=== PATIENT | male | born 1955 | race American Indian/Alaskan Native ===

== ENCOUNTER 2017-03-05 11:20 | Inpatient (IN) | payer MEDICARE, OTHER ==
[2017-03-05 11:23] VITALS: BMI 28.3
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
--- NOTE | 2017-03-05 12:01 | CT ---
PROCEDURE: CT HEAD WITHOUT CONTRAST. HISTORY: code stroke COMPARISON: 10/31/2010. TECHNIQUE: Axial computed tomography images were obtained through the head/brain without intravenous contrast. Radiation dose: Total exam DLP = 878.40 mGy-cm. This CT exam was performed using one or more of the following dose reduction techniques: Automated exposure control, adjustment of the mA and/or kV according to patient size, and/or use of iterative reconstruction technique. FINDINGS: HEMORRHAGE: No intracranial hemorrhage. BRAIN: No mass effect or edema. Atrophy, periventricular small vessel disease. Findings in the periventricular internal capsule region on the left consistent with old infarct of findings seen previously which correlates to findings on physical examination. VENTRICLES: Unremarkable. No hydrocephalus. CALVARIUM: Unremarkable. PARANASAL SINUSES: Unremarkable as visualized. No significant inflammatory changes. MASTOID AIR CELLS: Unremarkable as visualized. No inflammatory changes. OTHER FINDINGS: None. IMPRESSION: No acute findings related to/accounting for the clinical presentation. No significant interval change compared to the prior examination(s). Code stroke protocol: Study completed 11:49 Radiologist notified 11:53. Results conveyed verbally at 11:59. Interpretation finalized and available for review 12:01.
[2017-03-05 12:39] LABS: BASO # 0.1 K/uL (0.0-0.2); BASO % 0.7 % (0.0-2.0); EOS # 0.1 K/uL (0.0-0.7); EOS % 0.9 % (0.0-4.0); HEMATOCRIT 40.9 % (35.0-51.0); LYMPH # 0.6 K/uL (1.0-4.3); LYMPH % 5.7 % (20.0-40.0); MEAN CELL VOLUME 83.3 fl (80.0-94.0); MEAN CORPUSCULAR HGB CONC 32.4 g/dL (33.0-37.0); MEAN PLATELET VOLUME 8.4 fl (7.2-11.7); MONO % 10.6 % (0.0-10.0); NEUT # 7.9 K/uL (1.8-7.0); NEUT % 82.1 % (50.0-75.0); PLATELET COUNT 116 K/uL (130-400); RED CELL DISTRIBUTION WIDTH 14.2 % (11.5-14.5); WHITE BLOOD COUNT 9.6 K/uL (4.8-10.8)
[2017-03-05 12:57] LABS: ALB/GLOB RATIO 1.3 (1.0-2.1); ALKALINE PHOSPHATASE 78 U/L (38-126); ALT/SGPT 27 U/L (21-72); AST/SGOT 20 U/L (17-59); BLOOD UREA NITROGEN 19 mg/dl (9-20); CALCIUM 9.6 mg/dL (8.4-10.2); CARBON DIOXIDE 19 mmol/L (22-30); CHLORIDE 113 mmol/L (98-107); CHOLESTEROL 179 mg/dL (0-199); GFR AFRICAN-AMERICAN > 60; GLUCOSE,RANDOM 106 mg/dL (75-110); POTASSIUM 4.6 MMOL/L (3.6-5.0); SODIUM 145 mmol/l (132-148); TOTAL PROTEIN 6.6 G/DL (6.3-8.2)
--- NOTE | 2017-03-05 12:58 | RAD ---
HISTORY: code stroke COMPARISON: Chest x-ray performed 10/31/10 TECHNIQUE: Chest, one view. FINDINGS: LUNGS: Central vascular congestion. Mild pulmonary venous congestion. No focal consolidation. Please note that chest x-ray has limited sensitivity for the detection of pulmonary masses. PLEURA: No significant pleural effusion identified. No definite pneumothorax . CARDIOVASCULAR: Median sternotomy wires with evidence of CABG. Cardiomegaly. OSSEOUS STRUCTURES: No acute osseous abnormality identified. VISUALIZED UPPER ABDOMEN: Unremarkable. OTHER FINDINGS: None. IMPRESSION: Central vascular congestion. Mild pulmonary venous congestion. Cardiomegaly.
[2017-03-05 13:10] LABS: PARTIAL THROMBOPLASTIN TIME 28.2 SECONDS (23.3-32.5)
[2017-03-05 14:35] LABS: BASOPHIL 1 % (0-2); NEUTROPHIL 82 % (42-75); REACTIVE LYMPHOCYTES 1 % (0-0); TOTAL CELLS COUNTED 100
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
[2017-03-05 20:08] LABS: RBC URINE 5 /hpf (0-3); URINE BILIRUBIN NEGATIVE (NEGATIVE); URINE BLOOD NEGATIVE (NEGATIVE); URINE COLOR YELLOW (YELLOW); URINE GLUCOSE (UA) NEG (Normal); URINE KETONE NEGATIVE (NEGATIVE); URINE LEUKOCYTE ESTERASE NEG Leu/uL (Negative); URINE PROTEIN >=500 mg/dL (NEGATIVE); URINE UROBILINOGEN 0.2-1.0 mg/dL (0.2-1.0); WBC URINE < 1 /hpf (0-5)
[2017-03-05] MEDS ORDERED: Apap-Butalbital-Caffeine 325-50-40mg Tab ONE ×2 (21:02→21:04)
[2017-03-05 21:09] LABS: HEMATOCRIT 44.6 % (35.0-51.0); MEAN CELL VOLUME 85.4 fl (80.0-94.0); MEAN CORPUSCULAR HEMOGLOBIN 26.7 pg (27.0-31.0); MEAN CORPUSCULAR HGB CONC 31.3 g/dL (33.0-37.0); PLATELET COUNT 94 K/uL (130-400); RED CELL DISTRIBUTION WIDTH 14.9 % (11.5-14.5); WHITE BLOOD COUNT 9.9 K/uL (4.8-10.8)
[2017-03-05] MEDS: Apap-Butalbital-Caffeine 325-50-40mg Tab PO PRN (21:11)
[2017-03-05 21:17] LABS: ALB/GLOB RATIO 1.2 (1.0-2.1); ALKALINE PHOSPHATASE 85 U/L (38-126); ALT/SGPT 23 U/L (21-72); AST/SGOT 19 U/L (17-59); BILIRUBIN,TOTAL 1.5 mg/dl (0.2-1.3); BLOOD UREA NITROGEN 17 mg/dl (9-20); CALCIUM 9.9 mg/dL (8.4-10.2); CARBON DIOXIDE 18 mmol/L (22-30); CHLORIDE 112 mmol/L (98-107); GFR AFRICAN-AMERICAN > 60; GLUCOSE,RANDOM 76 mg/dL (75-110); POTASSIUM 4.6 MMOL/L (3.6-5.0); SODIUM 143 mmol/l (132-148); TOTAL PROTEIN 6.8 G/DL (6.3-8.2); URIC ACID 8.6 mg/Dl (3.5-8.5)
[2017-03-05 21:47] LABS: THYROID STIMULATING HORMONE 1.52 mIU/ML (0.46-4.68)
[2017-03-05 23:43] LABS: ERYTHROCYTE SEDIMENTATION RATE QNS mm/hr (0-20)
[2017-03-05] MEDS: Pantoprazole 40 mg EC Tab PO SCH (23:51)
--- NOTE | 2017-03-06 05:46 | CARD ---
APPROVED REPORT EKG Measurement Heart [id number] <Conclusion> Sinus bradycardia Minimal voltage criteria for LVH, may be normal variant ST & T wave abnormality, consider lateral ischemia Abnormal ECG
[2017-03-06] MEDS ORDERED: NIFEdipine 60 mg ER Tab PO SCH (09:00)
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
[2017-03-06] MEDS: Magnesium Oxide 400 mg Tab UD PO SCH ×3 (09:47→17:43)
[2017-03-06] MEDS: NIFEdipine 60 mg ER Tab PO SCH (09:48)
[2017-03-06] MEDS: Pantoprazole 40 mg EC Tab PO SCH (09:49)
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
[2017-03-06] MEDS: Apap-Butalbital-Caffeine 325-50-40mg Tab PO PRN (21:29)
--- NOTE | 2017-03-07 00:41 | CP.PCM.PN ---
Subjective - Date & Time of Evaluation Date of Evaluation: 03/06/17 Time of Evaluation: 20:45 - Subjective Subjective: No major changes, the 25 Hydroxy Vit D level is low (26.5). There is no change in his general condition. Objective - Vital Signs/Intake and Output Vital Signs (last 24 hours): Temp Pulse Resp BP Pulse Ox 98 F 20 L 53 H 125/72 98 03/07/17 00:38 03/07/17 00:38 03/07/17 00:38 03/07/17 00:38 03/07/17 00:38 - Medications Medications: Current Medications Acetaminophen (Tylenol 325mg Tab) 650 mg PO Q6 PRN PRN Reason: Pain, Mild (1-3) Last Admin: 03/05/17 23:49 Dose: 650 mg Acetaminophen/Butalbital/Caffeine (Fioricet) 2 tab PO Q4 PRN PRN Reason: Migraine headache Last Admin: 03/06/17 21:29 Dose: 2 tab Aspirin (Ecotrin) 81 mg PO DAILY [facility] Last Admin: 03/06/17 09:46 Dose: 81 mg Atorvastatin Calcium (Lipitor) 10 mg PO HS [facility] Last Admin: 03/06/17 21:31 Dose: 10 mg Calcium Carbonate (Oscal) 500 mg PO BIDWM [facility] Carvedilol (Coreg) 3.125 mg PO Q12H [facility] Last Admin: 03/06/17 17:42 Dose: Not Given Cholecalciferol (Vitamin D) 1,000 iu PO DAILY [facility] Last Admin: 03/06/17 09:49 Dose: 1,000 iu Cinacalcet (Sensipar) 30 mg PO DAILY [facility] Last Admin: 03/06/17 09:49 Dose: 30 mg Enoxaparin Sodium (Lovenox) 40 mg SC DAILY [facility] PRN Reason: Protocol Ergocalciferol (Drisdol 50,000 Intl Units Cap) 1 cap PO Q7D [facility] Furosemide (Lasix) 80 mg PO DAILY [facility] Last Admin: 03/06/17 09:47 Dose: 80 mg Lisinopril (Zestril) 5 mg PO DAILY [facility] Last Admin: 03/06/17 09:49 Dose: 5 mg Magnesium Oxide (Mag-Ox) 400 mg PO TID [facility] Last Admin: 03/06/17 17:43 Dose: 400 mg Mycophenolate Mofetil (Cellcept) 500 mg PO BID [facility] Last Admin: 03/06/17 17:42 Dose: 500 mg Nifedipine (Procardia Xl) 60 mg PO DAILY [facility] Last Admin: 03/06/17 09:48 Dose: 60 mg Pantoprazole Sodium (Protonix Ec Tab) 40 mg PO DAILY [facility] Last Admin: 03/06/17 09:49 Dose: 40 mg Tacrolimus (Prograf Cap) 5 mg PO BID [facility] Last Admin: 03/06/17 17:43 Dose: 5 mg Tamsulosin HCl (Flomax) 0.4 mg PO HS [facility] Last Admin: 03/06/17 21:31 Dose: 0.4 mg - Labs Labs: PT 10.8 SECONDS (9.6-11.2) 03/05/17 12:29 INR 1.04 (0.92-1.08) 03/05/17 12:29 APTT 28.2 SECONDS (23.3-32.5) 03/05/17 12:29 Assessment and Plan (1) Dizziness Status: Acute (2) CVA (cerebral vascular accident) Status: Chronic (3) Right hemiplegia Status: Chronic (4) Weakness on right side of face Status: Acute (5) Seizure disorder as sequela of cerebrovascular accident Status: Acute (6) Radiculopathy Status: Acute (7) Headache Status: Acute
[2017-03-07] MEDS ORDERED: Ergocalciferol 50,000 Intl Units Cap PO SCH ×2 (00:45→10:00)
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
[2017-03-07 06:50] LABS: BASO # 0.1 K/uL (0.0-0.2); BASO % 0.8 % (0.0-2.0); EOS # 0.1 K/uL (0.0-0.7); EOS % 1.5 % (0.0-4.0); HEMATOCRIT 42.9 % (35.0-51.0); LYMPH # 0.6 K/uL (1.0-4.3); LYMPH % 6.5 % (20.0-40.0); MEAN CELL VOLUME 83.6 fl (80.0-94.0); MEAN CORPUSCULAR HEMOGLOBIN 26.9 pg (27.0-31.0); MEAN CORPUSCULAR HGB CONC 32.2 g/dL (33.0-37.0); MEAN PLATELET VOLUME 8.7 fl (7.2-11.7); MONO # 1.3 K/uL (0.0-0.8); MONO % 13.5 % (0.0-10.0); NEUT # 7.3 K/uL (1.8-7.0); NEUT % 77.7 % (50.0-75.0); NRBC % 0.1 % (0.0-0.0); RED CELL DISTRIBUTION WIDTH 14.2 % (11.5-14.5); WHITE BLOOD COUNT 9.4 K/uL (4.8-10.8)
[2017-03-07 07:02] LABS: ALB/GLOB RATIO 1.2 (1.0-2.1); BILIRUBIN,TOTAL 1.2 mg/dl (0.2-1.3); CALCIUM 9.1 mg/dL (8.4-10.2); POTASSIUM 3.8 MMOL/L (3.6-5.0); TOTAL PROTEIN 6.5 G/DL (6.3-8.2)
[2017-03-07] MEDS ORDERED: Enoxaparin 40 mg Syringe SC SCH (09:00)
[2017-03-07] MEDS: Magnesium Oxide 400 mg Tab UD PO SCH ×3 (10:05→16:53)
[2017-03-07] MEDS: Pantoprazole 40 mg EC Tab PO SCH (10:06)
[2017-03-07] MEDS: NIFEdipine 60 mg ER Tab PO SCH (10:06)
--- NOTE | 2017-03-07 10:24 | CP.PCM.PN ---
Addendum entered and electronically signed by Renee Gipson 03/07/17 16:35: Proposed Dispo: TCU 03/08/2017 if medically stable Original Note: <Renee Gipson - Last Filed: 03/07/17 16:35> Subjective - Date & Time of Evaluation Date of Evaluation: 03/07/17 Time of Evaluation: 07:10 - Subjective Subjective: 61M seen and examined at bedside with attending. Pt reports feeling better, improved sensation of swallowing, denies dizziness/ SOB/chest pain and has a good appetite. Objective - Vital Signs/Intake and Output Vital Signs (last 24 hours): Temp Pulse Resp BP Pulse Ox 36.6 C 62 20 169/76 H 98 03/07/17 04:47 03/07/17 10:06 03/07/17 04:47 03/07/17 10:06 03/07/17 04:47 - Medications Medications: Current Medications Acetaminophen (Tylenol 325mg Tab) 650 mg PO Q6 PRN PRN Reason: Pain, Mild (1-3) Last Admin: 03/05/17 23:49 Dose: 650 mg Acetaminophen/Butalbital/Caffeine (Fioricet) 2 tab PO Q4 PRN PRN Reason: Migraine headache Last Admin: 03/06/17 21:29 Dose: 2 tab Aspirin (Ecotrin) 81 mg PO DAILY [facility] Last Admin: 03/07/17 10:04 Dose: 81 mg Atorvastatin Calcium (Lipitor) 10 mg PO HS [facility] Last Admin: 03/06/17 21:31 Dose: 10 mg Calcium Carbonate (Oscal) 500 mg PO BIDWM [facility] Last Admin: 03/07/17 10:02 Dose: 500 mg Carvedilol (Coreg) 3.125 mg PO Q12H [facility] Last Admin: 03/07/17 06:57 Dose: 3.125 mg Cholecalciferol (Vitamin D) 1,000 iu PO DAILY [facility] Last Admin: 03/07/17 10:08 Dose: 1,000 iu Cinacalcet (Sensipar) 30 mg PO DAILY [facility] Last Admin: 03/07/17 10:03 Dose: 30 mg Enoxaparin Sodium (Lovenox) 40 mg SC DAILY [facility] PRN Reason: Protocol Last Admin: 03/07/17 10:08 Dose: 40 mg Ergocalciferol (Drisdol 50,000 Intl Units Cap) 1 cap PO Q7D [facility] Last Admin: 03/07/17 10:11 Dose: 1 cap Lisinopril (Zestril) 5 mg PO DAILY [facility] Last Admin: 03/07/17 10:04 Dose: 5 mg Magnesium Oxide (Mag-Ox) 400 mg PO TID [facility] Last Admin: 03/07/17 10:05 Dose: 400 mg Mycophenolate Mofetil (Cellcept) 500 mg PO BID [facility] Last Admin: 03/07/17 10:06 Dose: 500 mg Nifedipine (Procardia Xl) 60 mg PO DAILY [facility] Last Admin: 03/07/17 10:06 Dose: 60 mg Pantoprazole Sodium (Protonix Ec Tab) 40 mg PO DAILY [facility] Last Admin: 03/07/17 10:06 Dose: 40 mg Tacrolimus (Prograf Cap) 5 mg PO BID [facility] Last Admin: 03/07/17 10:02 Dose: 5 mg Tamsulosin HCl (Flomax) 0.4 mg PO HS [facility] Last Admin: 03/06/17 21:31 Dose: 0.4 mg - Labs Labs: 03/07/17 04:45 03/07/17 04:45 PT 10.8 SECONDS (9.6-11.2) 03/05/17 12:29 INR 1.04 (0.92-1.08) 03/05/17 12:29 APTT 28.2 SECONDS (23.3-32.5) 03/05/17 12:29 - Constitutional Appears: Well, Non-toxic, No Acute Distress - Head Exam Head Exam: ATRAUMATIC, NORMAL INSPECTION - Eye Exam Eye Exam: EOMI, Normal appearance - ENT Exam ENT Exam: Mucous Membranes Moist, Normal Exam - Neck Exam Neck Exam: Full ROM - Respiratory Exam Respiratory Exam: Clear to Ausculation Bilateral, NORMAL BREATHING PATTERN. absent: Rales, Wheezes - Cardiovascular Exam Cardiovascular Exam: REGULAR RHYTHM. absent: JVD - GI/Abdominal Exam GI & Abdominal Exam: Soft, Normal Bowel Sounds. absent: Tenderness - Extremities Exam Extremities Exam: Normal Capillary Refill, Normal Inspection ((Strength L>R: 5/ 5 vs. 4/5)). absent: Pedal Edema - Neurological Exam Neurological Exam: Alert (RIGHT facial droop at baseline intact), Awake, Oriented x3 - Psychiatric Exam Psychiatric exam: Normal Affect, Normal Mood - Skin Skin Exam: Normal Color, Warm Assessment and Plan (1) TIA (transient ischemic attack) Assessment & Plan: Patient is at baseline, and thus far vitD showed insufficiency and CRP mildly elevated. Otherwise, ROBBIE/RA/C3/C4: neg/wnl respectively. MRI- no acute infarct , MRA- wnl, carotid duplex- b/l <50% - Neurology Consult (Dr Smith) appreciated: EEG - c/w Aspirin - PT/OT- rec TCU - Speech Therapy: chopped food and thin liquids okay. Status: Acute (2) DVT prophylaxis Assessment & Plan: Slight elevation in BUN/Cr and Lovenox a new medication, so switched over to Heparin SC, and platelets recovered. - Heparin 5,000U, SC, Q8H Status: Acute (3) Hypertension Assessment & Plan: Controlled, c/w home medications EXCEPT Coreg now with parameters due to significant sinus bradycardia. Status: Chronic (4) History of renal transplant Assessment & Plan: Attempting to get records from Dr L[facility] in [place], [place] where patient had transplant. Continues on appropriate renal transplant medications, and undergoing further work-up by Dr Roper. - Nephrology Consult (Dr Roper) appreciated and all recs followed - Labs in AM - Awaiting records from Nephrology group in [place], [place] Status: Chronic <Austin Gilbert K - Last Filed: 03/09/17 15:58> Objective - Vital Signs/Intake and Output Vital Signs (last 24 hours): Temp Pulse Resp BP Pulse Ox 97.7 F 47 L 20 170/74 H 97 03/09/17 15:44 03/09/17 15:44 03/09/17 15:44 03/09/17 15:44 03/09/17 15:44 - Medications Medications: Current Medications Acetaminophen (Tylenol 325mg Tab) 650 mg PO Q6 PRN PRN Reason: Pain, Mild (1-3) Last Admin: 03/05/17 23:49 Dose: 650 mg Acetaminophen/Butalbital/Caffeine (Fioricet) 2 tab PO Q4 PRN PRN Reason: Migraine headache Last Admin: 03/06/17 21:29 Dose: 2 tab Aspirin (Ecotrin) 81 mg PO DAILY [facility] Last Admin: 03/09/17 09:07 Dose: 81 mg Atorvastatin Calcium (Lipitor) 10 mg PO HS [facility] Last Admin: 03/08/17 23:00 Dose: 10 mg Calcium Carbonate (Oscal) 500 mg PO BIDWM [facility] Last Admin: 03/09/17 09:03 Dose: 500 mg Carvedilol (Coreg) 3.125 mg PO Q12H [facility] Last Admin: 03/09/17 05:10 Dose: 3.125 mg Cholecalciferol (Vitamin D) 1,000 iu PO DAILY [facility] Last Admin: 03/09/17 09:07 Dose: 1,000 iu Cinacalcet (Sensipar) 30 mg PO DAILY [facility] Last Admin: 03/09/17 09:04 Dose: 30 mg Ergocalciferol (Drisdol 50,000 Intl Units Cap) 1 cap PO Q7D [facility] Last Admin: 03/07/17 10:11 Dose: 1 cap Heparin Sodium (Porcine) (Heparin) 5,000 units SC Q8 [facility] PRN Reason: Protocol Last Admin: 03/09/17 09:08 Dose: 5,000 units Sodium Chloride (Sodium Chloride 0.45%) 1,000 mls @ 70 mls/hr IV .[id number] [facility] Stop: 03/09/17 19:01 Last Admin: 03/09/17 00:47 Dose: 70 mls/hr Lisinopril (Zestril) 5 mg PO [facility] Magnesium Oxide (Mag-Ox) 400 mg PO TID [facility] Last Admin: 03/09/17 09:04 Dose: 400 mg Mycophenolate Mofetil (Cellcept) 500 mg PO BID [facility] Last Admin: 03/09/17 09:07 Dose: 500 mg Nifedipine (Procardia Xl) 60 mg PO DAILY [facility] Last Admin: 03/09/17 09:04 Dose: 60 mg Pantoprazole Sodium (Protonix Ec Tab) 40 mg PO DAILY [facility] Last Admin: 03/09/17 09:09 Dose: 40 mg Prednisone (Prednisone Tab) 5 mg PO DAILY [facility] Last Admin: 03/09/17 09:08 Dose: 5 mg Tacrolimus (Prograf Cap) 5 mg PO BID [facility] Last Admin: 03/09/17 09:04 Dose: 5 mg Tamsulosin HCl (Flomax) 0.4 mg PO HS [facility] Last Admin: 03/08/17 23:00 Dose: 0.4 mg - Labs Labs: 03/09/17 10:12 03/09/17 09:08 PT 10.8 SECONDS (9.6-11.2) 03/05/17 12:29 INR 1.04 (0.92-1.08) 03/05/17 12:29 APTT 28.2 SECONDS (23.3-32.5) 03/05/17 12:29 Assessment and Plan - Assessment and Plan (Free Text) Assessment: Patient was personally seen and examined by me in rounds with residents. Available labs and diagnostic data reviewed. Case, Patient's condition and management plan discussed with residents in rounds. Agree with resident's documentation. Plan: As ordered. Austin Gilbert MD
--- NOTE | 2017-03-07 13:25 | US ---
PROCEDURE: Carotid vertebral duplex sonography. HISTORY: Old CVA, R/O a new CVA COMPARISON: 10/31/2010. TECHNIQUE: Grayscale, color Doppler and spectral Doppler assessment of the carotid system bilaterally. This includes common carotid, internal carotid arteries Vertebral artery assessment with respect to direction of flow (antegrade or retrograde) FINDINGS: RIGHT carotid system: Assessment of plaque: Heterogeneous plaque formation. Partially calcified plaque is abundant within the common carotid artery and bulb regions. Similar less pronounced findings in the right ICA. Peak systolic ICA velocity: 90.5 cm/sec End-diastolic velocity: 19.3 cm/sec ICA/CCA ratio: 0.7 Vertebral artery flow: Antegrade LEFT carotid system: Assessment of plaque: Heterogeneous plaque formation. Similar degree, distribution of calcified plaque in the common carotid and bulb regions compared to the opposite side. Peak systolic ICA velocity: 90.8 cm/sec End-diastolic velocity: 15.6 cm/sec ICA/CCA ratio: 0.7 Vertebral artery flow: Antegrade IMPRESSION: Right ICA degree of stenosis: Less than 50% Left ICA degree of stenosis: Less than 50%. No significant interval change compared to the prior examination(s). Reference Internal Carotid Artery (ICA) Peak Systolic Velocity (PSV) for above: 1. Less than 50% stenosis less than 125 cm/s peak systolic velocity 2. 50-69% stenosis 125-230cm/s peak systolic velocity 3. Greater than 70% but less than near occlusion greater than 230 cm/s peak systolic velocity
--- NOTE | 2017-03-07 13:45 | MRI ---
PROCEDURE: MRI BRAIN WITHOUT CONTRAST HISTORY: CVA, old, R/O a new CVA COMPARISON: Noncontrast head CT from 03/05/2017 TECHNIQUE: Multiplanar, multisequence MR images of the brain were obtained without intravenous contrast enhancement. FINDINGS: HEMORRHAGE: None DWI: No evidence of an acute or early subacute infarction. BRAIN PARENCHYMA: There are small old hemorrhagic infarctions in the left marsh radiata and basal ganglia. There are also old lacunar infarctions in bilateral marsh radiata. There are severe chronic microangiopathic changes. There is no mass, mass effect or abnormal extra-axial fluid collection. VENTRICLES: There is mild age-related global parenchymal volume loss and proportionate enlargement of the ventricles and cortical sulci. There are prominent perivascular spaces in bilateral basal ganglia. CRANIUM: There is normal bone marrow signal pattern. ORBITS: Grossly unremarkable. PARANASAL SINUSES/MASTOIDS: There is mild mucosal thickening in the paranasal sinuses. The mastoid air cells are predominantly clear. VASCULAR SYSTEM: There are normal signal voids in the larger intracranial arteries. OTHER FINDINGS: None. IMPRESSION: 1. No acute intracranial abnormality. Specifically, no evidence of acute infarction. 2. Old hemorrhagic infarctions in the left marsh radiata and basal ganglia. 3. Severe chronic microangiopathic changes and mild age-related global parenchymal volume loss.
--- NOTE | 2017-03-07 13:49 | MRI ---
PROCEDURE: Magnetic Resonance Angiography Brain HISTORY: Old CVA, r/o new CVA COMPARISON: None available. TECHNIQUE: 3D time of flight MR angiography of the intracranial arteries was performed. Rotating maximum intensity projection images were generated. FINDINGS: INTERNAL CEREBRAL ARTERIES: Normal in caliber. The skull base, petrous, cavernous and supraclinoid segments are bilaterally widely patient. ANTERIOR CEREBRAL ARTERIES: The left A1 segment is hypoplastic, an anatomic variant.A1 and A2 segments are widely patent. Smaller distal branches unremarkable, as visualized. MIDDLE CEREBRAL ARTERIES: Normal in caliber. M1 and M2 segments are widely patent. Perisylvian branches grossly symmetric. POSTERIOR CIRCULATION: Basilar Artery: Normal in caliber. Distal Vertebral Arteries: Normal in caliber. Posterior Cerebral Arteries: Normal in caliber. Posterior Inferior Cerebellar Arteries: Normal in caliber. ANEURYSM/ VASCULAR MALFORMATIONS: None. OTHER FINDINGS: None. IMPRESSION: Normal noncontrast MRA of the head.
--- NOTE | 2017-03-07 18:54 | CP.PCM.PN ---
Subjective - Date & Time of Evaluation Date of Evaluation: 03/07/17 Time of Evaluation: 18:54 - Subjective Subjective: pt seen and examined, follow up consult is dictated #[id number] Objective - Vital Signs/Intake and Output Vital Signs (last 24 hours): Temp Pulse Resp BP Pulse Ox 97.8 F 51 L 18 131/73 97 03/07/17 16:00 03/07/17 16:54 03/07/17 16:00 03/07/17 16:54 03/07/17 16:43 - Medications Medications: Current Medications Acetaminophen (Tylenol 325mg Tab) 650 mg PO Q6 PRN PRN Reason: Pain, Mild (1-3) Last Admin: 03/05/17 23:49 Dose: 650 mg Acetaminophen/Butalbital/Caffeine (Fioricet) 2 tab PO Q4 PRN PRN Reason: Migraine headache Last Admin: 03/06/17 21:29 Dose: 2 tab Aspirin (Ecotrin) 81 mg PO DAILY [facility] Last Admin: 03/07/17 10:04 Dose: 81 mg Atorvastatin Calcium (Lipitor) 10 mg PO HS [facility] Last Admin: 03/06/17 21:31 Dose: 10 mg Calcium Carbonate (Oscal) 500 mg PO BIDWM [facility] Last Admin: 03/07/17 16:53 Dose: 500 mg Carvedilol (Coreg) 3.125 mg PO Q12H [facility] Last Admin: 03/07/17 16:54 Dose: 3.125 mg Cholecalciferol (Vitamin D) 1,000 iu PO DAILY [facility] Last Admin: 03/07/17 10:08 Dose: 1,000 iu Cinacalcet (Sensipar) 30 mg PO DAILY [facility] Last Admin: 03/07/17 10:03 Dose: 30 mg Ergocalciferol (Drisdol 50,000 Intl Units Cap) 1 cap PO Q7D [facility] Last Admin: 03/07/17 10:11 Dose: 1 cap Heparin Sodium (Porcine) (Heparin) 5,000 units SC Q8 [facility] PRN Reason: Protocol Sodium Chloride (Sodium Chloride 0.45%) 1,000 mls @ 70 mls/hr IV .[id number] [facility] Stop: 03/09/17 19:01 Lisinopril (Zestril) 5 mg PO DAILY [facility] Last Admin: 03/07/17 10:04 Dose: 5 mg Magnesium Oxide (Mag-Ox) 400 mg PO TID [facility] Last Admin: 03/07/17 16:53 Dose: 400 mg Mycophenolate Mofetil (Cellcept) 500 mg PO BID [facility] Last Admin: 03/07/17 16:53 Dose: 500 mg Nifedipine (Procardia Xl) 60 mg PO DAILY [facility] Last Admin: 03/07/17 10:06 Dose: 60 mg Pantoprazole Sodium (Protonix Ec Tab) 40 mg PO DAILY [facility] Last Admin: 03/07/17 10:06 Dose: 40 mg Tacrolimus (Prograf Cap) 5 mg PO BID [facility] Last Admin: 03/07/17 16:52 Dose: 5 mg Tamsulosin HCl (Flomax) 0.4 mg PO HS [facility] Last Admin: 03/06/17 21:31 Dose: 0.4 mg - Labs Labs: 03/07/17 04:45 03/07/17 04:45 PT 10.8 SECONDS (9.6-11.2) 03/05/17 12:29 INR 1.04 (0.92-1.08) 03/05/17 12:29 APTT 28.2 SECONDS (23.3-32.5) 03/05/17 12:29
[2017-03-07] MEDS: Sodium Chloride 0.45% 1,000 ML IV SCH (19:48)
--- NOTE | 2017-03-07 21:21 | CP.PCM.PN ---
Subjective - Date & Time of Evaluation Date of Evaluation: 03/07/17 Time of Evaluation: 21:00 - Subjective Subjective: Tests of Nephrology ordered by Dr Barajas are seen. Patient looks stable. He is awake alert Oriented. Carotid Doppler are showing less than 50% stenosis. Negative MRA Brain MRI Brain result is showing no new findings IMPRESSION of MRI Brain: 1. No acute intracranial abnormality. Specifically, no evidence of acute infarction. 2. Old hemorrhagic infarctions in the left marsh radiata and basal ganglia. 3. Severe chronic microangiopathic changes and mild age-related global parenchymal volume loss. Objective - Vital Signs/Intake and Output Vital Signs (last 24 hours): Temp Pulse Resp BP Pulse Ox 97.7 F 52 L 18 147/70 99 03/07/17 19:37 03/07/17 19:37 03/07/17 19:37 03/07/17 19:37 03/07/17 19:37 - Medications Medications: Current Medications Acetaminophen (Tylenol 325mg Tab) 650 mg PO Q6 PRN PRN Reason: Pain, Mild (1-3) Last Admin: 03/05/17 23:49 Dose: 650 mg Acetaminophen/Butalbital/Caffeine (Fioricet) 2 tab PO Q4 PRN PRN Reason: Migraine headache Last Admin: 03/06/17 21:29 Dose: 2 tab Aspirin (Ecotrin) 81 mg PO DAILY [facility] Last Admin: 03/07/17 10:04 Dose: 81 mg Atorvastatin Calcium (Lipitor) 10 mg PO HS [facility] Last Admin: 03/06/17 21:31 Dose: 10 mg Calcium Carbonate (Oscal) 500 mg PO BIDWM [facility] Last Admin: 03/07/17 16:53 Dose: 500 mg Carvedilol (Coreg) 3.125 mg PO Q12H [facility] Last Admin: 03/07/17 16:54 Dose: 3.125 mg Cholecalciferol (Vitamin D) 1,000 iu PO DAILY [facility] Last Admin: 03/07/17 10:08 Dose: 1,000 iu Cinacalcet (Sensipar) 30 mg PO DAILY [facility] Last Admin: 03/07/17 10:03 Dose: 30 mg Ergocalciferol (Drisdol 50,000 Intl Units Cap) 1 cap PO Q7D [facility] Last Admin: 03/07/17 10:11 Dose: 1 cap Heparin Sodium (Porcine) (Heparin) 5,000 units SC Q8 [facility] PRN Reason: Protocol Sodium Chloride (Sodium Chloride 0.45%) 1,000 mls @ 70 mls/hr IV .[id number] [facility] Stop: 03/09/17 19:01 Last Admin: 03/07/17 19:48 Dose: 70 mls/hr Lisinopril (Zestril) 5 mg PO DAILY [facility] Last Admin: 03/07/17 10:04 Dose: 5 mg Magnesium Oxide (Mag-Ox) 400 mg PO TID [facility] Last Admin: 03/07/17 16:53 Dose: 400 mg Mycophenolate Mofetil (Cellcept) 500 mg PO BID [facility] Last Admin: 03/07/17 16:53 Dose: 500 mg Nifedipine (Procardia Xl) 60 mg PO DAILY [facility] Last Admin: 03/07/17 10:06 Dose: 60 mg Pantoprazole Sodium (Protonix Ec Tab) 40 mg PO DAILY [facility] Last Admin: 03/07/17 10:06 Dose: 40 mg Tacrolimus (Prograf Cap) 5 mg PO BID [facility] Last Admin: 03/07/17 16:52 Dose: 5 mg Tamsulosin HCl (Flomax) 0.4 mg PO HS [facility] Last Admin: 03/06/17 21:31 Dose: 0.4 mg - Labs Labs: 03/07/17 04:45 03/07/17 04:45 PT 10.8 SECONDS (9.6-11.2) 03/05/17 12:29 INR 1.04 (0.92-1.08) 03/05/17 12:29 APTT 28.2 SECONDS (23.3-32.5) 03/05/17 12:29 Assessment and Plan (1) Dizziness Status: Acute (2) CVA (cerebral vascular accident) Status: Chronic (3) Right hemiplegia Status: Chronic (4) Weakness on right side of face Status: Acute (5) Seizure disorder as sequela of cerebrovascular accident Status: Acute (6) Radiculopathy Status: Acute (7) Headache Status: Acute
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
[2017-03-08 08:02] LABS: CALCIUM 9.2 mg/dL (8.4-10.2); POTASSIUM 4.2 MMOL/L (3.6-5.0)
--- NOTE | 2017-03-08 08:13 | PN ---
DATE: 03/08/2017 The patient seen and examined. Interim events noted. Consults noted, appreciated. interventi ons noted and appreciated. The patient is sleepy, arousable, awake, responsive, . Feels okay, no specific complaint, no chest pain, no shortness of breath. PHYSICAL EXAMINATION: GENERAL: The patient is in no acute distress. VITAL SIGNS: Stable. HEART: S1, S2 normal, regular. LUNGS: Good bilateral air entry. ABDOMEN: Soft, nontender. EXTREMITIES: No edema, no calf swelling, no tenderness, no acute ischemia. CENTRAL NERVOUS SYSTEM: Essentially unchanged. There are no new signs. DIAGNOSTIC DATA: Available reviewed. Telemetry monitoring does not reveal significant arrhythmias. Overall, patient's general medical condition is stable. PLAN: As ordered. Austin Gilbert MD cc: [id number] TT: 03/08/2017 08:12:35 Confirmation # [id number] Dictation # [id number] en
[2017-03-08] MEDS: Magnesium Oxide 400 mg Tab UD PO SCH ×3 (09:05→17:00)
[2017-03-08] MEDS: NIFEdipine 60 mg ER Tab PO SCH (09:06)
[2017-03-08] MEDS: Pantoprazole 40 mg EC Tab PO SCH (09:08)
[2017-03-08] MEDS: Sodium Chloride 0.45% 1,000 ML IV SCH (09:11)
--- NOTE | 2017-03-08 09:45 | CP.PCM.PN ---
Subjective - Date & Time of Evaluation Date of Evaluation: 03/08/17 Time of Evaluation: 09:45 - Subjective Subjective: pt seen and examined, follow up consult is dictated # continue ivf 1/2 ns at 70 ml/hr addprednisone 5 mg daily Objective - Vital Signs/Intake and Output Vital Signs (last 24 hours): Temp Pulse Resp BP Pulse Ox 98.0 F 54 L 20 171/85 H 96 03/08/17 08:02 03/08/17 09:07 03/08/17 08:02 03/08/17 09:07 03/08/17 08:02 Intake and Output: 03/08/17 03/08/17 06:59 18:59 Intake Total 1040 Output Total 250 Balance 790 - Medications Medications: Current Medications Acetaminophen (Tylenol 325mg Tab) 650 mg PO Q6 PRN PRN Reason: Pain, Mild (1-3) Last Admin: 03/05/17 23:49 Dose: 650 mg Acetaminophen/Butalbital/Caffeine (Fioricet) 2 tab PO Q4 PRN PRN Reason: Migraine headache Last Admin: 03/06/17 21:29 Dose: 2 tab Aspirin (Ecotrin) 81 mg PO DAILY [facility] Last Admin: 03/08/17 09:05 Dose: 81 mg Atorvastatin Calcium (Lipitor) 10 mg PO HS [facility] Last Admin: 03/07/17 21:18 Dose: 10 mg Calcium Carbonate (Oscal) 500 mg PO BIDWM [facility] Last Admin: 03/08/17 09:09 Dose: 500 mg Carvedilol (Coreg) 3.125 mg PO Q12H [facility] Last Admin: 03/08/17 05:11 Dose: 3.125 mg Cholecalciferol (Vitamin D) 1,000 iu PO DAILY [facility] Last Admin: 03/08/17 09:08 Dose: 1,000 iu Cinacalcet (Sensipar) 30 mg PO DAILY [facility] Last Admin: 03/08/17 09:07 Dose: 30 mg Ergocalciferol (Drisdol 50,000 Intl Units Cap) 1 cap PO Q7D [facility] Last Admin: 03/07/17 10:11 Dose: 1 cap Heparin Sodium (Porcine) (Heparin) 5,000 units SC Q8 [facility] PRN Reason: Protocol Last Admin: 03/08/17 09:08 Dose: 5,000 units Sodium Chloride (Sodium Chloride 0.45%) 1,000 mls @ 70 mls/hr IV .[id number] [facility] Stop: 03/09/17 19:01 Last Admin: 03/08/17 09:11 Dose: 70 mls/hr Lisinopril (Zestril) 5 mg PO DAILY [facility] Last Admin: 03/08/17 09:07 Dose: 5 mg Magnesium Oxide (Mag-Ox) 400 mg PO TID [facility] Last Admin: 03/08/17 09:05 Dose: 400 mg Mycophenolate Mofetil (Cellcept) 500 mg PO BID [facility] Last Admin: 03/08/17 09:08 Dose: 500 mg Nifedipine (Procardia Xl) 60 mg PO DAILY [facility] Last Admin: 03/08/17 09:06 Dose: 60 mg Pantoprazole Sodium (Protonix Ec Tab) 40 mg PO DAILY [facility] Last Admin: 03/08/17 09:08 Dose: 40 mg Tacrolimus (Prograf Cap) 5 mg PO BID [facility] Last Admin: 03/08/17 09:04 Dose: 5 mg Tamsulosin HCl (Flomax) 0.4 mg PO HS [facility] Last Admin: 03/07/17 21:17 Dose: 0.4 mg - Labs Labs: 03/07/17 04:45 03/08/17 07:39 PT 10.8 SECONDS (9.6-11.2) 03/05/17 12:29 INR 1.04 (0.92-1.08) 03/05/17 12:29 APTT 28.2 SECONDS (23.3-32.5) 03/05/17 12:29
--- NOTE | 2017-03-08 15:56 | RAD ---
PROCEDURE: Right foot trauma attention 1st digit HISTORY: trauma, swelling COMPARISON: None TECHNIQUE: Standard protocol for this study/examination. FINDINGS: Negative study for acute fracture. Degenerative changes are mild. Soft tissue swelling 1st digit. IMPRESSION: Soft tissue swelling without acute articular or osseous abnormality.
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
[2017-03-09] MEDS: Sodium Chloride 0.45% 1,000 ML IV SCH ×2 (00:47→14:15)
--- NOTE | 2017-03-09 01:05 | CP.PCM.PN ---
Subjective - Date & Time of Evaluation Date of Evaluation: 03/08/17 Time of Evaluation: 19:25 - Subjective Subjective: He is seen by nephrology for abnormal renal function as low fluid intake and a h/o Renal transplant he received from his son. Objective - Vital Signs/Intake and Output Vital Signs (last 24 hours): Temp Pulse Resp BP Pulse Ox 97.8 F 50 L 20 162/75 H 96 03/08/17 23:51 03/08/17 23:51 03/08/17 23:51 03/08/17 23:51 03/08/17 23:51 Intake and Output: 03/08/17 03/09/17 18:59 06:59 Intake Total 1040 Output Total 250 Balance 790 - Medications Medications: Current Medications Acetaminophen (Tylenol 325mg Tab) 650 mg PO Q6 PRN PRN Reason: Pain, Mild (1-3) Last Admin: 03/05/17 23:49 Dose: 650 mg Acetaminophen/Butalbital/Caffeine (Fioricet) 2 tab PO Q4 PRN PRN Reason: Migraine headache Last Admin: 03/06/17 21:29 Dose: 2 tab Aspirin (Ecotrin) 81 mg PO DAILY [facility] Last Admin: 03/08/17 09:05 Dose: 81 mg Atorvastatin Calcium (Lipitor) 10 mg PO HS [facility] Last Admin: 03/08/17 23:00 Dose: 10 mg Calcium Carbonate (Oscal) 500 mg PO BIDWM [facility] Last Admin: 03/08/17 17:00 Dose: 500 mg Carvedilol (Coreg) 3.125 mg PO Q12H [facility] Last Admin: 03/08/17 17:01 Dose: 3.125 mg Cholecalciferol (Vitamin D) 1,000 iu PO DAILY [facility] Last Admin: 03/08/17 09:08 Dose: 1,000 iu Cinacalcet (Sensipar) 30 mg PO DAILY [facility] Last Admin: 03/08/17 09:07 Dose: 30 mg Ergocalciferol (Drisdol 50,000 Intl Units Cap) 1 cap PO Q7D [facility] Last Admin: 03/07/17 10:11 Dose: 1 cap Heparin Sodium (Porcine) (Heparin) 5,000 units SC Q8 [facility] PRN Reason: Protocol Last Admin: 03/09/17 00:44 Dose: 5,000 units Sodium Chloride (Sodium Chloride 0.45%) 1,000 mls @ 70 mls/hr IV .[id number] [facility] Stop: 03/09/17 19:01 Last Admin: 03/09/17 00:47 Dose: 70 mls/hr Lisinopril (Zestril) 5 mg PO DAILY [facility] Last Admin: 03/08/17 09:07 Dose: 5 mg Magnesium Oxide (Mag-Ox) 400 mg PO TID [facility] Last Admin: 03/08/17 17:00 Dose: 400 mg Mycophenolate Mofetil (Cellcept) 500 mg PO BID [facility] Last Admin: 03/08/17 17:02 Dose: 500 mg Nifedipine (Procardia Xl) 60 mg PO DAILY [facility] Last Admin: 03/08/17 09:06 Dose: 60 mg Pantoprazole Sodium (Protonix Ec Tab) 40 mg PO DAILY [facility] Last Admin: 03/08/17 09:08 Dose: 40 mg Prednisone (Prednisone Tab) 5 mg PO DAILY [facility] Tacrolimus (Prograf Cap) 5 mg PO BID [facility] Last Admin: 03/08/17 16:59 Dose: 5 mg Tamsulosin HCl (Flomax) 0.4 mg PO HS [facility] Last Admin: 03/08/17 23:00 Dose: 0.4 mg - Labs Labs: 03/07/17 04:45 03/08/17 18:13 PT 10.8 SECONDS (9.6-11.2) 03/05/17 12:29 INR 1.04 (0.92-1.08) 03/05/17 12:29 APTT 28.2 SECONDS (23.3-32.5) 03/05/17 12:29 Assessment and Plan (1) Dizziness Status: Acute (2) CVA (cerebral vascular accident) Status: Chronic (3) Right hemiplegia Status: Chronic (4) Weakness on right side of face Status: Acute (5) Seizure disorder as sequela of cerebrovascular accident Status: Acute (6) Radiculopathy Status: Acute (7) Headache Status: Acute
[2017-03-09 08:04] VITALS: RESP 20
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
[2017-03-09] MEDS: Magnesium Oxide 400 mg Tab UD PO SCH ×3 (09:04→16:44)
[2017-03-09] MEDS: NIFEdipine 60 mg ER Tab PO SCH (09:04)
[2017-03-09] MEDS: Pantoprazole 40 mg EC Tab PO SCH (09:09)
[2017-03-09 09:31] LABS: BLOOD UREA NITROGEN 21 mg/dl (9-20); CALCIUM 9.7 mg/dL (8.4-10.2); CARBON DIOXIDE 22 mmol/L (22-30); CHLORIDE 106 mmol/L (98-107); GFR AFRICAN-AMERICAN > 60; GLUCOSE,RANDOM 94 mg/dL (75-110); POTASSIUM 4.9 MMOL/L (3.6-5.0); SODIUM 141 mmol/l (132-148)
[2017-03-09 10:21] LABS: HEMATOCRIT 41.5 % (35.0-51.0); MEAN CELL VOLUME 82.7 fl (80.0-94.0); MEAN CORPUSCULAR HEMOGLOBIN 26.9 pg (27.0-31.0); MEAN CORPUSCULAR HGB CONC 32.5 g/dL (33.0-37.0); RED CELL DISTRIBUTION WIDTH 13.8 % (11.5-14.5); WHITE BLOOD COUNT 6.1 K/uL (4.8-10.8)
[2017-03-09 15:45] VITALS: TEMP 97.7; O2SAT 97
[2017-03-09 17:32] VITALS: BP 130/73; PULSE 58
--- NOTE | 2017-03-10 01:44 | CP.PCM.PN ---
Subjective - Date & Time of Evaluation Date of Evaluation: 03/09/17 Time of Evaluation: 18:00 - Subjective Subjective: He has improved and is asking me about his kidney function and the work up of nephrology. He will be be going to a subacute rehab briefly on the 7th floor TCU until he is able to be discharged home. Objective - Vital Signs/Intake and Output Vital Signs (last 24 hours): Temp Pulse Resp BP Pulse Ox 97.7 F 58 L 20 130/73 97 03/09/17 15:44 03/09/17 17:31 03/09/17 15:44 03/09/17 17:31 03/09/17 15:44 - Labs Labs: 03/09/17 10:12 03/09/17 09:08 PT 10.8 SECONDS (9.6-11.2) 03/05/17 12:29 INR 1.04 (0.92-1.08) 03/05/17 12:29 APTT 28.2 SECONDS (23.3-32.5) 03/05/17 12:29 Assessment and Plan (1) Dizziness Status: Acute (2) CVA (cerebral vascular accident) Status: Chronic (3) Right hemiplegia Status: Chronic (4) Weakness on right side of face Status: Acute (5) Seizure disorder as sequela of cerebrovascular accident Status: Acute (6) Radiculopathy Status: Acute (7) Headache Status: Acute
--- NOTE | 2017-03-15 06:10 | EEG ---
DATE: 03/15/2017 PROCEDURE: EEG INDICATION: The record was obtained for a history of CVA in the past, rule out seizures, rule out ne w CVA, rule out encephalopathy. FINDINGS: The record was obtained while the patient was awake. The record was symmetrically equal o n both sides with velocity of 8 cycles per second. Waves are fairly formed, fairly organized with a posterior distribution, moderate in amplitude, reactive to eye opening by attenuation. There were no abnormal discharges. No spike, no polyspike, no sharp wave, no focal slowing, no paroxysmal dischar ge. The record did not show any changes with photic stimulation. The hyperventilation was omitted. There were no periods of drowsiness. There were no periods of sleep. There were eye movement artif act, electrode artifact and muscle movement artifacts. IMPRESSION: In sum, this is a normal awake EEG. There is no evidence of seizures. There is no evid ence of encephalopathy. Clinical correlation is recommended. Carson Smith MD cc: [id number] TT: 03/15/2017 06:09:11 Confirmation # [id number] Dictation # [id number] dn
== END 2017-03-09 18:40 | DRG 69 ==
LOC: H.ER 11:20 → H.ERHOLD 14:49 → H.TEL 21:35 → OBSVTOIN 03-06 12:27
PROVIDERS: ADMIT Internal Medicine; ATTEND Internal Medicine
DX: G45.9 Transient cerebral ischemic attack, unspecified (principal); N17.9 Acute kidney failure, unspecified; E86.9 Volume depletion, unspecified; Z94.0 Kidney transplant status; I69.351 Hemiplegia and hemiparesis following cerebral infarction affecting right dominant side; E78.00 Pure hypercholesterolemia, unspecified; M54.12 Radiculopathy, cervical region; M54.16 Radiculopathy, lumbar region; I65.23 Occlusion and stenosis of bilateral carotid arteries; I69.392 Facial weakness following cerebral infarction; I25.10 Atherosclerotic heart disease of native coronary artery without angina pectoris; Z95.1 Presence of aortocoronary bypass graft; I69.398 Other sequelae of cerebral infarction; G40.909 Epilepsy, unspecified, not intractable, without status epilepticus; I12.9 Hypertensive chronic kidney disease with stage 1 through stage 4 chronic kidney disease, or unspecified chronic kidney disease; N18.9 Chronic kidney disease, unspecified

== ENCOUNTER 2017-03-09 12:38 | Inpatient (IN) | payer OTHER ==
[2017-03-09] MEDS: Sodium Chloride 0.45% 1,000 ML IV SCH (23:37)
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
[2017-03-10] MEDS ORDERED: Pantoprazole 20 mg EC Tab PO SCH (09:00)
[2017-03-10] MEDS: Pantoprazole 40 mg EC Tab PO SCH (09:58)
[2017-03-10] MEDS: NIFEdipine 60 mg ER Tab PO SCH ×2 (09:58→18:38)
[2017-03-10] MEDS: Magnesium Oxide 400 mg Tab UD PO SCH ×3 (09:59→16:53)
[2017-03-10] MEDS: Sodium Chloride 0.45% 1,000 ML IV SCH (10:02)
--- NOTE | 2017-03-10 20:39 | CP.PCM.PN ---
Subjective - Date & Time of Evaluation Date of Evaluation: 03/10/17 Time of Evaluation: 20:38 - Subjective Subjective: pt seen and examined, follow up consult is dictated #[id number] Objective - Vital Signs/Intake and Output Vital Signs (last 24 hours): Temp Pulse Resp BP Pulse Ox 97.5 F L 48 L 20 154/69 H 98 03/10/17 20:37 03/10/17 20:37 03/10/17 20:37 03/10/17 20:37 03/10/17 20:37 - Medications Medications: Current Medications Aspirin (Ecotrin) 81 mg PO DAILY [facility] Last Admin: 03/10/17 09:58 Dose: 81 mg Atorvastatin Calcium (Lipitor) 10 mg PO HS [facility] Last Admin: 03/09/17 23:33 Dose: 10 mg Carvedilol (Coreg) 3.125 mg PO Q12@1000,2200 [facility] Last Admin: 03/10/17 10:00 Dose: 3.125 mg Cholecalciferol (Vitamin D) 1,000 iu PO DAILY [facility] Last Admin: 03/10/17 09:57 Dose: 1,000 iu Cinacalcet (Sensipar) 30 mg PO DAILY [facility] Last Admin: 03/10/17 09:58 Dose: 30 mg Furosemide (Lasix) 80 mg PO DAILY [facility] Heparin Sodium (Porcine) (Heparin) 5,000 units SC Q8 [facility] PRN Reason: Protocol Magnesium Oxide (Mag-Ox) 400 mg PO TID [facility] Last Admin: 03/10/17 16:53 Dose: 400 mg Mycophenolate Mofetil (Cellcept) 500 mg PO BID [facility] Last Admin: 03/10/17 16:53 Dose: 500 mg Nifedipine (Procardia Xl) 60 mg PO BID [facility] Last Admin: 03/10/17 18:38 Dose: 60 mg Pantoprazole Sodium (Protonix Ec Tab) 40 mg PO DAILY [facility] Last Admin: 03/10/17 09:58 Dose: 40 mg Prednisone (Prednisone Tab) 5 mg PO DAILY [facility] Last Admin: 03/10/17 09:58 Dose: 5 mg Tacrolimus (Prograf Cap) 5 mg PO BID [facility] Last Admin: 03/10/17 16:54 Dose: 5 mg Tamsulosin HCl (Flomax) 0.4 mg PO HS [facility] Last Admin: 03/09/17 23:33 Dose: 0.4 mg
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
[2017-03-11 09:02] LABS: BLOOD UREA NITROGEN 26 mg/dl (9-20); CALCIUM 9.7 mg/dL (8.4-10.2); CARBON DIOXIDE 21 mmol/L (22-30); CHLORIDE 107 mmol/L (98-107); GFR AFRICAN-AMERICAN > 60; GLUCOSE,RANDOM 81 mg/dL (75-110); POTASSIUM 4.1 MMOL/L (3.6-5.0); SODIUM 141 mmol/l (132-148)
[2017-03-11] MEDS: Pantoprazole 40 mg EC Tab PO SCH (09:20)
[2017-03-11] MEDS: Magnesium Oxide 400 mg Tab UD PO SCH ×3 (09:20→17:36)
--- NOTE | 2017-03-11 09:55 | PN ---
DATE: 03/11/2017 The patient seen and examined. Interim events noted. The patient remains in transitional care unit. The patient is sleepy, arousable, feels okay. No specific complaint. No chest pain, no shortness of breath. PHYSICAL EXAMINATION: GENERAL: The patient is in no acute distress. VITAL SIGNS: Stable. HEART: S1, S2 normal, regular. LUNGS: Good bilateral air entry. ABDOMEN: . EXTREMITIES: No edema, no calf swelling, no tenderness, no acute ischemia. CENTRAL NERVOUS SYSTEM: Essentially unchanged. DIAGNOSTIC DATA: Available reviewed. Overall, patient's general medical condition is stable. PLAN: As ordered. Austin Gilbert MD cc: [id number] TT: 03/11/2017 09:55:39 Confirmation # [id number] Dictation # [id number] en
[2017-03-11] MEDS: NIFEdipine 60 mg ER Tab PO SCH ×2 (10:45→17:36)
[2017-03-12 07:29] LABS: ALB/GLOB RATIO 1.1 (1.0-2.1); BILIRUBIN,TOTAL 0.8 mg/dl (0.2-1.3); CALCIUM 10.1 mg/dL (8.4-10.2); POTASSIUM 4.1 MMOL/L (3.6-5.0); TOTAL PROTEIN 7.9 G/DL (6.3-8.2)
[2017-03-12 07:35] LABS: HEMATOCRIT 44.6 % (35.0-51.0); MEAN CELL VOLUME 82.7 fl (80.0-94.0); MEAN CORPUSCULAR HGB CONC 32.6 g/dL (33.0-37.0); RED CELL DISTRIBUTION WIDTH 13.9 % (11.5-14.5); WHITE BLOOD COUNT 6.9 K/uL (4.8-10.8)
--- NOTE | 2017-03-12 07:48 | PN ---
DATE: 03/12/2017 The patient seen and examined. Interim events noted. The patient remains in transitional care unit. Feels okay, feels stronger, able to tolerate food and doing physical therapy. PHYSICAL EXAMINATION: GENERAL: The patient is in no acute distress. VITAL SIGNS: Stable. HEART: S1, S2 normal, regular. LUNGS: Good bilateral air entry. ABDOMEN: Soft, nontender. EXTREMITIES: No edema, no calf swelling, no tenderness, no . CENTRAL NERVOUS SYSTEM: Essentially unchanged. DIAGNOSTIC DATA: Available reviewed. Overall, patient's general medical condition improving. PLAN: As ordered. Austin Gilbert MD cc: [id number] TT: 03/12/2017 07:48:38 Confirmation # [id number] Dictation # [id number] en
[2017-03-12] MEDS: Magnesium Oxide 400 mg Tab UD PO SCH ×3 (09:38→17:58)
[2017-03-12] MEDS: Pantoprazole 40 mg EC Tab PO SCH (09:39)
[2017-03-12] MEDS: NIFEdipine 90 mg ER Tab PO SCH (10:51)
--- NOTE | 2017-03-12 20:10 | CP.PCM.PN ---
Subjective - Date & Time of Evaluation Date of Evaluation: 03/12/17 Time of Evaluation: 20:10 - Subjective Subjective: pt seen nad examined, follow up consult is dictated #[id number] Objective - Vital Signs/Intake and Output Vital Signs (last 24 hours): Temp Pulse Resp BP Pulse Ox 97.0 F L 54 L 20 137/73 100 03/12/17 16:23 03/12/17 16:23 03/12/17 16:23 03/12/17 16:23 03/12/17 16:23 - Medications Medications: Current Medications Aspirin (Ecotrin) 81 mg PO DAILY [facility] Last Admin: 03/12/17 09:38 Dose: 81 mg Atorvastatin Calcium (Lipitor) 10 mg PO HS [facility] Last Admin: 03/11/17 21:08 Dose: 10 mg Carvedilol (Coreg) 6.25 mg PO Q12@1000,2200 [facility] Last Admin: 03/12/17 10:54 Dose: 6.25 mg Cholecalciferol (Vitamin D) 1,000 iu PO DAILY [facility] Last Admin: 03/12/17 09:38 Dose: 1,000 iu Cinacalcet (Sensipar) 30 mg PO DAILY [facility] Last Admin: 03/12/17 09:38 Dose: 30 mg Furosemide (Lasix) 80 mg PO DAILY [facility] Last Admin: 03/12/17 09:39 Dose: 80 mg Heparin Sodium (Porcine) (Heparin) 5,000 units SC Q8 [facility] PRN Reason: Protocol Last Admin: 03/12/17 17:57 Dose: 5,000 units Magnesium Oxide (Mag-Ox) 400 mg PO TID [facility] Last Admin: 03/12/17 17:58 Dose: 400 mg Mycophenolate Mofetil (Cellcept) 500 mg PO BID [facility] Last Admin: 03/12/17 17:57 Dose: 500 mg Nifedipine (Procardia Xl) 90 mg PO DAILY [facility] Last Admin: 03/12/17 10:51 Dose: 90 mg Pantoprazole Sodium (Protonix Ec Tab) 40 mg PO DAILY [facility] Last Admin: 03/12/17 09:39 Dose: 40 mg Prednisone (Prednisone Tab) 5 mg PO DAILY [facility] Last Admin: 03/12/17 09:38 Dose: 5 mg Tacrolimus (Prograf Cap) 5 mg PO BID [facility] Last Admin: 03/12/17 17:57 Dose: 5 mg Tamsulosin HCl (Flomax) 0.4 mg PO HS [facility] Last Admin: 03/11/17 21:08 Dose: 0.4 mg - Labs Labs: 03/12/17 07:03 03/12/17 07:03
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
[2017-03-13] MEDS: NIFEdipine 90 mg ER Tab PO SCH (08:54)
[2017-03-13] MEDS: Magnesium Oxide 400 mg Tab UD PO SCH ×3 (08:55→17:09)
[2017-03-13] MEDS: Pantoprazole 40 mg EC Tab PO SCH (08:55)
[2017-03-14] MEDS: NIFEdipine 90 mg ER Tab PO SCH (08:28)
[2017-03-14] MEDS: Magnesium Oxide 400 mg Tab UD PO SCH ×3 (08:28→17:59)
[2017-03-14] MEDS: Pantoprazole 40 mg EC Tab PO SCH (08:29)
--- NOTE | 2017-03-14 11:53 | PN ---
DATE: 03/14/2017 SUBJECTIVE: The patient seen and examined. Interim events noted. The patient remains in transition al care unit. The patient feels okay. No specific complaint of chest pain, no shortness of breath. He is back to his normal self. PHYSICAL EXAMINATION: GENERAL: The patient is in no acute distress. VITAL SIGNS: Stable. HEART: S1, S2 normal, regular. LUNGS: Good bilateral air entry. ABDOMEN: Soft, nontender. EXTREMITIES: No edema, no calf swelling, no tenderness. No acute ischemia. CENTRAL NERVOUS SYSTEM: Essentially unchanged. DIAGNOSTIC DATA: Available diagnostic data reviewed. Overall, patient's general medical condition is stable. Nephrology followup and intervention noted a nd appreciated. PLAN: As ordered. Austin Gilbert MD cc: [id number] TT: 03/14/2017 11:52:42 Confirmation # [id number] Dictation # [id number] an
--- NOTE | 2017-03-14 12:11 | PN ---
DATE: 03/14/2017 The patient seen and examined. Interim events noted. The patient remains in transitional care unit. The patient feels much better. No chest pain, no shortness of breath. The patient feels like back to his normal self. PHYSICAL EXAMINATION: GENERAL: The patient is in no acute distress. VITAL SIGNS: Stable. Temperature 97, pulse 50, respiration 20, blood pressure 130/67. HEART: S1, S2 normal, regular. LUNGS: Good bilateral air entry. ABDOMEN: Soft, nontender. EXTREMITIES: No edema, no calf swelling, no tenderness, no acute ischemia. CENTRAL NERVOUS SYSTEM: Essentially unchanged. DIAGNOSTIC DATA: Available diagnostic data reviewed. Nephrology consult followup noted and appreciated. Overall, patient's general medical condition is stable. PLAN: As ordered. Austin Gilbert MD cc: [id number] TT: 03/14/2017 12:11:01 Confirmation # [id number] Dictation # [id number] fernie
[2017-03-15 08:19] VITALS: RESP 20
[2017-03-15] MEDS: NIFEdipine 90 mg ER Tab PO SCH (08:44)
[2017-03-15] MEDS: Magnesium Oxide 400 mg Tab UD PO SCH ×3 (08:45→16:39)
[2017-03-15] MEDS: Pantoprazole 40 mg EC Tab PO SCH (08:46)
--- NOTE | 2017-03-15 18:24 | PN ---
DATE: 03/15/2017 The patient seen and examined. Interim events noted. The patient remains in transitional care unit. The patient feels okay. No specific complaint of chest pain or shortness of breath. PHYSICAL EXAMINATION: GENERAL: The patient is in no acute distress. VITAL SIGNS: Stable. HEART: S1, S2 normal, regular. LUNGS: Good bilateral air entry. ABDOMEN: Soft, nontender. EXTREMITIES: No edema, no calf swelling, no tenderness, no acute ischemia. CENTRAL NERVOUS SYSTEM: Essentially unchanged. DIAGNOSTIC DATA: Available diagnostic data reviewed. Overall, patient's general medical condition is stable. PLAN: As ordered. Austin Gilbert MD cc: [id number] TT: 03/15/2017 18:23:01 Confirmation # [id number] Dictation # [id number] terese
--- NOTE | 2017-03-15 19:24 | CP.PCM.PN ---
Subjective - Date & Time of Evaluation Date of Evaluation: 03/15/17 Time of Evaluation: 19:24 - Subjective Subjective: pt seen and examined, follow up consult is dictated #[id number] Objective - Vital Signs/Intake and Output Vital Signs (last 24 hours): Temp Pulse Resp BP Pulse Ox 97.2 F L 59 L 20 145/78 98 03/15/17 16:33 03/15/17 16:33 03/15/17 16:33 03/15/17 16:33 03/15/17 16:33 - Medications Medications: Current Medications Aspirin (Ecotrin) 81 mg PO DAILY [facility] Last Admin: 03/15/17 08:45 Dose: 81 mg Atorvastatin Calcium (Lipitor) 10 mg PO HS [facility] Last Admin: 03/14/17 21:38 Dose: 10 mg Carvedilol (Coreg) 6.25 mg PO Q12@1000,2200 [facility] Last Admin: 03/15/17 09:17 Dose: 6.25 mg Cholecalciferol (Vitamin D) 1,000 iu PO DAILY [facility] Last Admin: 03/15/17 08:46 Dose: 1,000 iu Cinacalcet (Sensipar) 30 mg PO DAILY [facility] Last Admin: 03/15/17 08:46 Dose: 30 mg Furosemide (Lasix) 80 mg PO DAILY [facility] Last Admin: 03/15/17 08:44 Dose: 80 mg Heparin Sodium (Porcine) (Heparin) 5,000 units SC Q8 [facility] PRN Reason: Protocol Last Admin: 03/15/17 16:39 Dose: 5,000 units Magnesium Oxide (Mag-Ox) 400 mg PO TID [facility] Last Admin: 03/15/17 16:39 Dose: 400 mg Mycophenolate Mofetil (Cellcept) 500 mg PO BID [facility] Last Admin: 03/15/17 16:39 Dose: 500 mg Nifedipine (Procardia Xl) 90 mg PO DAILY [facility] Last Admin: 03/15/17 08:44 Dose: 90 mg Pantoprazole Sodium (Protonix Ec Tab) 40 mg PO DAILY [facility] Last Admin: 03/15/17 08:46 Dose: 40 mg Prednisone (Prednisone Tab) 5 mg PO DAILY [facility] Last Admin: 03/15/17 08:44 Dose: 5 mg Tacrolimus (Prograf Cap) 5 mg PO BID [facility] Last Admin: 03/15/17 16:38 Dose: 5 mg Tamsulosin HCl (Flomax) 0.4 mg PO HS [facility] Last Admin: 03/14/17 21:38 Dose: 0.4 mg - Labs Labs: 03/12/17 07:03 03/12/17 07:03
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
--- NOTE | 2017-03-16 08:05 | PN ---
DATE: 03/16/2017 The patient seen and examined. Interim events noted. The patient remains in transitional care unit. The patient feels okay. No specific complaints of chest pain or shortness of breath. PHYSICAL EXAMINATION: GENERAL: The patient is in no acute distress. VITAL SIGNS: Stable. HEART: S1, S2 normal, regular. LUNGS: Good bilateral air entry. ABDOMEN: Soft, nontender. EXTREMITIES: No edema, no calf swelling, no tenderness, no acute ischemia. CENTRAL NERVOUS SYSTEM: Essentially unchanged. DIAGNOSTIC DATA: Available diagnostic data reviewed. Overall, patient's general medical condition is stable. The patient is ambulatory and doing his ADLs by himself. The patient is back to his normal status. Will discharge the patient home today. The patient will be followed up by primary care physician, . ____. Case and plan discussed with the lindsay august in detail. Austin Gilbert MD cc: [id number] TT: 03/16/2017 08:04:56 Confirmation # [id number] Dictation # [id number] fernie
[2017-03-16 08:09] VITALS: TEMP 97.3; O2SAT 99
[2017-03-16 08:10] LABS: CALCIUM 10.3 mg/dL (8.4-10.2); MAGNESIUM 1.9 MG/DL (1.6-2.3); POTASSIUM 3.7 MMOL/L (3.6-5.0)
[2017-03-16 08:15] LABS: BASO # 0.1 K/uL (0.0-0.2); BASO % 1.1 % (0.0-2.0); EOS # 0.1 K/uL (0.0-0.7); EOS % 1.8 % (0.0-4.0); HEMATOCRIT 43.7 % (35.0-51.0); LYMPH # 1.3 K/uL (1.0-4.3); MEAN CELL VOLUME 82.3 fl (80.0-94.0); MEAN CORPUSCULAR HEMOGLOBIN 26.9 pg (27.0-31.0); MEAN CORPUSCULAR HGB CONC 32.7 g/dL (33.0-37.0); MEAN PLATELET VOLUME 8.4 fl (7.2-11.7); MONO # 0.9 K/uL (0.0-0.8); MONO % 11.8 % (0.0-10.0); NEUT # 5.5 K/uL (1.8-7.0); NEUT % 69.3 % (50.0-75.0); NRBC % 0.1 % (0.0-0.0); RED CELL DISTRIBUTION WIDTH 14.1 % (11.5-14.5); WHITE BLOOD COUNT 7.9 K/uL (4.8-10.8)
[2017-03-16] MEDS: Magnesium Oxide 400 mg Tab UD PO SCH ×2 (08:19→12:15)
[2017-03-16] MEDS: Pantoprazole 40 mg EC Tab PO SCH (08:19)
--- NOTE | 2017-03-16 09:34 | CP.PCM.PN ---
Subjective - Date & Time of Evaluation Date of Evaluation: 03/16/17 Time of Evaluation: 09:33 - Subjective Subjective: pt seen and examined, follow up consult is dictated #[id number] stable from renal stand point Objective - Vital Signs/Intake and Output Vital Signs (last 24 hours): Temp Pulse Resp BP Pulse Ox 97.3 F L 55 L 20 140/79 99 03/16/17 08:08 03/16/17 08:08 03/16/17 08:08 03/16/17 08:18 03/16/17 08:08 - Medications Medications: Current Medications Aspirin (Ecotrin) 81 mg PO DAILY [facility] Last Admin: 03/16/17 08:19 Dose: 81 mg Atorvastatin Calcium (Lipitor) 10 mg PO HS [facility] Last Admin: 03/15/17 21:04 Dose: 10 mg Carvedilol (Coreg) 6.25 mg PO Q12@1000,2200 [facility] Last Admin: 03/15/17 21:04 Dose: Not Given Cholecalciferol (Vitamin D) 1,000 iu PO DAILY [facility] Last Admin: 03/16/17 08:19 Dose: 1,000 iu Cinacalcet (Sensipar) 30 mg PO DAILY [facility] Last Admin: 03/16/17 08:18 Dose: 30 mg Furosemide (Lasix) 80 mg PO DAILY [facility] Last Admin: 03/16/17 08:18 Dose: 80 mg Heparin Sodium (Porcine) (Heparin) 5,000 units SC Q8 [facility] PRN Reason: Protocol Last Admin: 03/16/17 00:08 Dose: 5,000 units Magnesium Oxide (Mag-Ox) 400 mg PO TID [facility] Last Admin: 03/16/17 08:19 Dose: 400 mg Mycophenolate Mofetil (Cellcept) 500 mg PO BID [facility] Last Admin: 03/16/17 08:19 Dose: 500 mg Nifedipine (Procardia Xl) 90 mg PO DAILY [facility] Last Admin: 03/15/17 08:44 Dose: 90 mg Pantoprazole Sodium (Protonix Ec Tab) 40 mg PO DAILY [facility] Last Admin: 03/16/17 08:19 Dose: 40 mg Prednisone (Prednisone Tab) 5 mg PO DAILY [facility] Last Admin: 03/16/17 08:19 Dose: 5 mg Tacrolimus (Prograf Cap) 5 mg PO BID [facility] Last Admin: 03/16/17 08:19 Dose: 5 mg Tamsulosin HCl (Flomax) 0.4 mg PO HS [facility] Last Admin: 03/15/17 21:04 Dose: 0.4 mg - Labs Labs: 03/16/17 07:43 03/16/17 07:43
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
[2017-03-16] MEDS: NIFEdipine 90 mg ER Tab PO SCH (10:45)
[2017-03-16 10:57] VITALS: BP 155/79; PULSE 58
== END 2017-03-16 13:30 | disposition home or self-care (01) | DRG 56 ==
LOC: H.TCU 18:28 → UNDOADMIN 18:39 → H.TCU 18:39
PROVIDERS: ADMIT Internal Medicine; ATTEND Internal Medicine
PROC: F08Z4ZZ Home Management Treatment (ICD-10-PCS; principal; 2017-03-09)
PROC: F07Z9FZ Gait Training/Functional Ambulation Treatment using Assistive, Adaptive, Supportive or Protective Equipment (ICD-10-PCS; 2017-03-09)
PROC: F07L0FZ Range of Motion and Joint Mobility Treatment of Musculoskeletal System - Lower Back / Lower Extremity using Assistive, Adaptive, Supportive or Protective Equipment (ICD-10-PCS; 2017-03-09)
PROC: F07L6FZ Therapeutic Exercise Treatment of Musculoskeletal System - Lower Back / Lower Extremity using Assistive, Adaptive, Supportive or Protective Equipment (ICD-10-PCS; 2017-03-09)
DX: I69.351 Hemiplegia and hemiparesis following cerebral infarction affecting right dominant side (principal); N18.6 End stage renal disease; N17.9 Acute kidney failure, unspecified; I12.0 Hypertensive chronic kidney disease with stage 5 chronic kidney disease or end stage renal disease; Z94.0 Kidney transplant status; I25.10 Atherosclerotic heart disease of native coronary artery without angina pectoris; Z95.1 Presence of aortocoronary bypass graft; R80.9 Proteinuria, unspecified; E86.0 Dehydration

== ENCOUNTER 2017-04-04 14:25 | Emergency (ER) | payer MEDICARE, OTHER ==
[2017-04-04 14:25] VITALS: BMI 28.3
[2017-04-04 14:54] VITALS: BP 140/85; PULSE 68; RESP 18; TEMP 98; O2SAT 98
--- NOTE | 2017-04-04 15:48 | ED PDOC ---
Upper Extremity Pain/Injury Time Seen by Provider: 04/04/17 14:54 Chief Complaint (Nursing): Finger,Hand,&Wrist Chief Complaint (Provider): right wrist pain History Per: Patient History/Exam Limitations: no limitations Current Symptoms Are (Timing): Still Present Additional Complaint(s): Bipin Valdez is a 62 year old male, with a previous medical history of CAD and hypertension, who presents to the ED with complaints of right wrist pain secondary to sustaining a fall. Patient reports to tripping and falling on his right hand. He denies any numbness or tingling. PMD: none provided Past Medical History Reviewed: Historical Data, Nursing Documentation, Vital Signs Vital Signs: Last Vital Signs Temp 98 F 04/04/17 14:51 Pulse 68 04/04/17 14:51 Resp 18 04/04/17 14:51 BP 140/85 04/04/17 14:51 Pulse Ox 98 04/04/17 14:51 - Medical History PMH: CVA (3x), HTN, Hypercholesterolemia, Chronic Kidney Disease Denies: Diabetes - Surgical History Surgical History: CABG (quadruple) - Family History Family History: States: Unknown Family Hx - Immunization History Hx Tetanus Toxoid Vaccination: No Hx Influenza Vaccination: No Hx Pneumococcal Vaccination: No - Home Medications Home Medications: Ambulatory Orders Medication Instructions Recorded Aspirin [Ecotrin] 81 mg PO DAILY 03/05/17 Cholecalciferol [Vitamin D 1000 IU] 1,000 unit PO DAILY 03/05/17 Cinacalcet [Sensipar] 30 mg PO DAILY 03/05/17 Lisinopril [Zestril] 5 mg PO DAILY 03/05/17 Magnesium Oxide [Magox 400] 400 mg PO TID 03/05/17 Mycophenolate [Cellcept Cap] 500 mg PO BID 03/05/17 Omeprazole 20 mg PO DAILY 03/05/17 Simvastatin [Zocor] 20 mg PO HS 03/05/17 Tacrolimus [Prograf Cap] 5 mg PO BID 03/05/17 Tamsulosin [Flomax] 0.4 mg PO HS 03/05/17 predniSONE [predniSONE Tab] 5 mg PO DAILY 03/05/17 Carvedilol [Coreg] 1 tab PO BID 03/16/17 Furosemide [Lasix] 40 mg PO BID 03/16/17 NIFEdipine ER [Procardia XL] 1 tab PO DAILY 03/16/17 traMADol [Ultram] 50 mg PO Q6H PRN #10 tab 04/04/17 - Allergies Allergies/Adverse Reactions: Allergies Allergy/AdvReac Type Severity Reaction Status Date / Time No Known Allergies Allergy Unverified 10/04/13 14:08 Review of Systems ROS Statement: Except As Marked, All Systems Reviewed And Found Negative Musculoskeletal: Positive for: Hand Pain (right wrist) Physical Exam - Reviewed Nursing Documentation Reviewed: Yes Vital Signs Reviewed: Yes - Physical Exam Appears: Positive for: Well, Non-toxic, No Acute Distress Head Exam: Positive for: ATRAUMATIC, NORMAL INSPECTION, NORMOCEPHALIC Skin: Positive for: Normal Color, Warm, DRY Eye Exam: Positive for: Normal appearance ENT: Positive for: Normal ENT Inspection Respiratory: Negative for: Accessory Muscle Use, Respiratory Distress Pulses-Radial (L): 2+ Pulses-Radial (R): 2+ Extremity: Positive for: Tenderness (distal ulna ), Capillary Refill (< 2 seconds), Other (sensation intact ). Negative for: Normal ROM (decreased ROM secondary to pain ), Deformity, Swelling Neurologic/Psych: Positive for: Alert, Oriented - ECG O2 Sat by Pulse Oximetry: 98 (RA) Pulse Ox Interpretation: Normal Medical Decision Making Medical Decision Making: Initial Impression: Wrist pain Initial Plan: * x-ray right wrist * tramadol 50mg * reevaluation Pt reports feeling better on re-evaluation. Velcro wrist splint placed. X-ray of the wrist normal. Discussed f./u for continued pain. Scribe Attestation: Documented by Deirdre Alcantara, acting as a scribe for Diamond Moss PA-C. Provider Scribe Attestation: All medical record entries made by the Scribe were at my direction and personally dictated by me. I have reviewed the chart and agree that the record accurately reflects my personal performance of the history, physical exam, medical decision making, and the department course for this patient. I have also personally directed, reviewed, and agree with the discharge instructions and disposition. Disposition - Clinical Impression Clinical Impression: Wrist injury - Patient ED Disposition Is Patient to be Admitted: No - Disposition Referrals: Subhash Mcgrath MD [Medical Doctor] - Disposition: Routine/Home Disposition Time: 15:57 Condition: STABLE Prescriptions: traMADol [Ultram] 50 mg PO Q6H PRN #10 tab PRN Reason: Pain Instructions: Wrist Injury (ED)
--- NOTE | 2017-04-04 16:04 | RAD ---
PROCEDURE: Left Wrist Radiographs. HISTORY: pain s.p fall COMPARISON: None. FINDINGS: BONES: Normal. No fracture. JOINTS: Normal. No dislocation. SOFT TISSUES: Normal. OTHER FINDINGS: None. IMPRESSION: No acute findings related to/accounting for the clinical presentation.
== END 2017-04-04 17:33 | disposition home or self-care (01) ==
LOC: H.ER 14:25
DX: S69.91XA Unspecified injury of right wrist, hand and finger(s), initial encounter (principal); W01.0XXA Fall on same level from slipping, tripping and stumbling without subsequent striking against object, initial encounter; Y93.9 Activity, unspecified